=== PATIENT | female | born 1995 | race Caucasian/White ===

== ENCOUNTER 2022-08-03 07:33 | Emergency (ER) | payer OTHER ==
[2022-08-03 08:40] LABS: BASOPHIL 0.5 % (0-2); EOSINOPHIL 0.4 % (0-5); HCT 42.4 % (37.0-47.0); HGB 13.7 g/dl (12.5-16.0); LYMPHOCYTE 12.6 % (15-48); MCH 28.9 pg (25.0-31.0); MCHC 32.3 g/dL (32.0-36.0); MCV 89.5 fL (78.0-100.0); MONOCYTE 3.1 % (0-12); MPV 10.5 fL (6.0-9.5); NEUTROPHIL 83.2 % (41-80); NRBC 0; PLT 222 K/uL (150-400); RBC 4.74 M/uL (4.20-5.40); RDW 12.8 % (11.5-14.0); WBC 13.2 K/uL (4.0-10.5)
[2022-08-03 08:44] LABS: BILIRUBIN NEGATIVE (NEGATIVE); BLOOD 3+ Ery/uL (NEGATIVE); CLARITY CLEAR (CLEAR); COLOR YELLOW (YELLOW); GLUCOSE (U) NORMAL (NORMAL); LEUKOCYTES NEGATIVE Leu/uL (NEGATIVE); NITRITE NEGATIVE (NEGATIVE); PROTEIN 1+ mg/dL (NEGATIVE); SPECIFIC GRAVITY >=1.030 (1.001-1.030); UROBILINOGEN 0.2 mg/dL (0.2-1.0)
[2022-08-03 09:08] LABS: ALBUMIN 4.2 g/dL (3.4-5.0); BILIRUBIN - TOTAL 0.3 mg/dL (0.2-1.0); CREATININE 0.84 mg/dL (0.51-0.95); GLOBULIN (CALCULATION) 3.4 g/dL; POTASSIUM 4.5 mmol/L (3.5-5.1); TOTAL PROTEIN 7.6 g/dL (6.4-8.2)
[2022-08-03 09:35] LABS: AMORPHOUS URATES CRYSTALS MODERATE
[2022-08-03] MEDS ORDERED: FLOMAX 0.4 MG0.4 MG PO (10:06)
[2022-08-03] MEDS ORDERED: NORCO 5/3251 EACH PO (10:06)
[2022-08-03] MEDS ORDERED: NAPROXEN500 MG PO (10:06)
== END 2022-08-03 10:41 | disposition home or self-care (01) ==
LOC: FER 07:33
PROVIDERS: Emergency Medicine
DX: N20.1 Calculus of ureter (principal); Z28.310 Unvaccinated for COVID-19
CPT/HCPCS: 36415; 80053; 81001; 85025; J1885; J2405